=== PATIENT | female | born 1940 | race Caucasian/White ===

== ENCOUNTER → 2016-11-09 | Outpatient (CLI) | payer MEDICARE ==
[2014-10-12 14:00] VITALS: BP 175/71
[~2016-11-09] MED LIST: ALPR0.25 PO; DILT180C2 PO; FLUT9.9S NS; GABA-585 PO; GABA-586 PO; LACT1CAP6 PO; LISI10TA2 PO; METO25TA9 PO; METO50TA10 PO; OMEG1CAP6 PO; OMEP20CA5 PO; OXYB10TA7 PO; PROAIR HFA8.5 GM INH; PROM25SU32 RC; PROM25TA10 PO
--- NOTE | 2016-11-09 13:40 | KCIC ---
PROCEDURE Pelvic ultrasound HISTORY Right pelvic pain and right inguinal pain. COMPARISON None TECHNIQUE Transabdominal and transvaginal scanning is performed. FINDINGS Ovaries are not visualized transabdominally. The uterus is poorly visualized. Therefore, transvaginal scanning is performed Uterus measures 3.9 centimeters longitudinal by 2.1 centimeters AP by 2.9 centimeters wide. Uterus is difficult to visualize transvaginally as well. The endometrium is poorly defined but measures about 15 millimeters thickness. Right and left ovaries are not visualized endovaginally either. There may be a small right inguinal lymph node measuring 8 millimeters. No free fluid is seen. IMPRESSION 1. Uterus is small and poorly visualized. 2. Ovaries are not visualized. 3. No free fluid. Electronically signed by: Mike Douglass MD (Nov 09, 2016 13:40:04)
== END | disposition home or self-care (01) ==
LOC: KCIC US 12:18
PROVIDERS: ATTEND Nurse Practitioner Family
DX: R10.31 Right lower quadrant pain (principal); R10.2 Pelvic and perineal pain; R10.30 Lower abdominal pain, unspecified
CPT/HCPCS: 76830; 76856

== ENCOUNTER → 2016-11-22 | Outpatient (CLI) | payer MEDICARE ==
[2014-10-12 14:00] VITALS: BP 175/71
--- NOTE | 2016-11-22 11:24 | KCIC ---
PROCEDURE Two-view chest. HISTORY Cough, shortness of air, bronchitis x3 days. COMPARISON Two-view chest, September 26, 2016. FINDINGS The cardiomediastinal silhouette is normal. Tortuous thoracic aorta. Lungs are clear. There is emphysema. No pleural effusion or pneumothorax. No acute bone abnormality. IMPRESSION No acute cardiopulmonary process. Electronically signed by: Cresencio Perkins MD (Nov 22, 2016 11:23:20)
== END | disposition home or self-care (01) ==
LOC: KCIC 11:00
PROVIDERS: ATTEND Nurse Practitioner Family
DX: J40 Bronchitis, not specified as acute or chronic (principal); R06.02 Shortness of breath; R05 Cough
CPT/HCPCS: 71020

== ENCOUNTER → 2017-10-14 | Outpatient (CLI) | payer MEDICARE, BC ==
[2014-10-12 14:00] VITALS: BP 175/71
[~2017-10-14] MED LIST changes: +METO-239 PO; -METO25TA9 PO; -METO50TA10 PO; +METO50TA29 PO
--- NOTE | 2017-10-14 11:32 | KCIC ---
CHEST PA LATERAL History: Severe shortness of air, bronchitis Comparison: None. Findings: There is no infiltrate, pneumothorax, or effusion. The cardiac silhouette is within normal limits in size. There is tortuous thoracic aorta. Impression: 1. There is no evidence of acute cardiopulmonary disease. Electronically signed by: Omer Fan MD (10/14/2017 11:28 AM) [facility]
== END | disposition home or self-care (01) ==
LOC: KCIC 10:06
PROVIDERS: ATTEND Nurse Practitioner Family
DX: J42 Unspecified chronic bronchitis (principal)
CPT/HCPCS: 71020

== ENCOUNTER → 2017-11-01 | Outpatient (CLI) | payer MEDICARE, BC | END | disposition home or self-care (01) | LOC: CT 09:05 | DX: J98.4 Other disorders of lung (principal); I77.810 Thoracic aortic ectasia; I25.10 Atherosclerotic heart disease of native coronary artery without angina pectoris; Z87.891 Personal history of nicotine dependence | CPT/HCPCS: 71250 ==

== ENCOUNTER → 2018-01-14 | Outpatient (CLI) | payer MEDICARE, BC | END | disposition home or self-care (01) | LOC: PMGWOUND 12:02 | DX: T23.001A Burn of unspecified degree of right hand, unspecified site, initial encounter (principal); T23.002A Burn of unspecified degree of left hand, unspecified site, initial encounter; I25.10 Atherosclerotic heart disease of native coronary artery without angina pectoris; J44.9 Chronic obstructive pulmonary disease, unspecified; K21.9 Gastro-esophageal reflux disease without esophagitis; Z87.891 Personal history of nicotine dependence; X19.XXXA Contact with other heat and hot substances, initial encounter; Y93.G3 Activity, cooking and baking; Y99.8 Other external cause status; Y92.9 Unspecified place or not applicable | CPT/HCPCS: 99214 ==

== ENCOUNTER → 2018-01-21 | Outpatient (CLI) | payer MEDICARE, BC | END | disposition home or self-care (01) | LOC: PMGWOUND 11:38 | DX: T23.001D Burn of unspecified degree of right hand, unspecified site, subsequent encounter (principal); T23.002D Burn of unspecified degree of left hand, unspecified site, subsequent encounter; I25.10 Atherosclerotic heart disease of native coronary artery without angina pectoris; J44.9 Chronic obstructive pulmonary disease, unspecified; K21.9 Gastro-esophageal reflux disease without esophagitis; I73.9 Peripheral vascular disease, unspecified; D48.5 Neoplasm of uncertain behavior of skin; Z87.891 Personal history of nicotine dependence; X19.XXXD Contact with other heat and hot substances, subsequent encounter | CPT/HCPCS: 11100; 88305 ==

== ENCOUNTER → 2018-01-28 | Outpatient (CLI) | payer MEDICARE, BC | END | disposition home or self-care (01) | LOC: PMGWOUND 11:18 | DX: T23.001D Burn of unspecified degree of right hand, unspecified site, subsequent encounter (principal); T23.002D Burn of unspecified degree of left hand, unspecified site, subsequent encounter; I25.10 Atherosclerotic heart disease of native coronary artery without angina pectoris; J44.9 Chronic obstructive pulmonary disease, unspecified; K21.9 Gastro-esophageal reflux disease without esophagitis; I73.9 Peripheral vascular disease, unspecified; D48.5 Neoplasm of uncertain behavior of skin; Z87.891 Personal history of nicotine dependence; X19.XXXD Contact with other heat and hot substances, subsequent encounter | CPT/HCPCS: 99214 ==

== ENCOUNTER → 2019-07-16 | Outpatient (CLI) | payer MEDICARE ==
[2018-04-24 19:00] VITALS: BP 135/79
[~2019-07-16] MED LIST changes: +ALBU2.5V8 INH; +AMOX1TAB11 PO; +DULO20CA PO; +EZET10TA20 PO; +FENO54TA PO; -GABA-586 PO; +GABA300C18 PO; +GUAI5SYR PO; +IOHEXOL 350 MG/ML 100 ML VIAL. IV ONE; +MONT10TA49 PO; +OMEP40CA5 PO; +POLY17PO29 PO; +PRED20TA PO; -PROAIR HFA8.5 GM INH; +VENTOLIN HFA18 GM INH; +XOPENEX1.25 MG/3 NEB
[2019-07-16 12:43] LABS: CREATININE 0.8 mg/dL (0.6-1.0)
--- NOTE | 2019-07-16 17:39 | RAD ---
Examination: CT ANGIO CHEST ABD PELVIS History: Descending thoracic aortic aneurysm Comparison/Correlation: 04/23/2018 CTA of the chest, 04/24/2019 CTA of the abdomen and pelvis Findings: Axial images of chest, abdomen, and pelvis were obtained prior to and following IV contrast according to aortic arteriography protocol. 3-D time rendered images were provided. Sagittal and coronal reformatted images were provided. The thoracic aorta opacifies normally with contrast. No evidence of aortic dissection. No intramural hematoma. No significant stenoses of the major thoracic aortic branch vessels. 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 Superior and inferior mesenteric artery stenoses are lesser in extent without significant change. No right or left main renal arterial stenosis. There is a distal thoracic, upper abdominal aortic aneurysm again identified morphology is similar as compared to previous exam. Aneurysm is unchanged in size with diameter of up to 4.74 cm. This aneurysm includes the origins of the celiac and superior mesenteric artery. Infrarenal abdominal aortic aneurysm is also again seen. Morphology is unchanged with the diameter of up to 3.7 cm transverse and anteroposterior diameter of 3.4 cm which is similar to the prior exam. The more distal abdominal aorta is also similar upon correlation with the prior exam. Bilateral main renal arteries are unremarkable. No significant stenoses of the common iliac arterial origins. Diffuse atheromatous, calcific involvement of the abdominal aorta and iliac arteries. Stenoses involving the iliac arteries is similar to the prior exam. Right apical pleural thickening is present. No change in a right apical pulmonary nodule measuring up to 0.5 cm diameter. No infiltrates. Emphysematous involvement of the lung esteban again noted. Linear scarring or atelectasis involving lung bases again seen. Previously evident infiltrates have resolved. No enlarged thoracic lymph nodes. No pleural or pericardial effusion. Nodular contour of the liver which raises question of cirrhosis or other fibrotic changes noted. Spleen is normal in size. Pancreas is unremarkable. Adrenal glands are normal. Gallbladder fossa is unremarkable. Symmetric perfusion of the kidneys identified. No enlarged abdominal or pelvic lymph nodes. Urinary bladder is unremarkable. Uterus is atrophic. Impression: No significant change in known aortic aneurysms. No new infiltrate. Resolution of previously evident infiltrates. Nodular contour of the liver which may represent cirrhosis or other fibrotic process. No splenomegaly. Atherosclerotic calcific involvement including stenosis especially of the celiac artery again seen. Diffuse atheromatous involvement of the iliac arteries again identified. PQRS Compliance Statement: One or more of the following individualized dose reduction techniques were utilized for this examination: 1. Automated exposure control 2. Adjustment of the mA and/or kV according to patient size 3. Use of iterative reconstruction technique Electronically signed by: Milton Cooley MD (07/16/2019 5:36 PM) [facility]
== END | disposition home or self-care (01) ==
LOC: CT 12:43
PROVIDERS: ATTEND Registered Nurse Medical-Surgical
DX: I77.4 Celiac artery compression syndrome (principal); J43.9 Emphysema, unspecified; K55.1 Chronic vascular disorders of intestine; I71.2 Thoracic aortic aneurysm, without rupture; I71.4 Abdominal aortic aneurysm, without rupture
CPT/HCPCS: 36415; 71275; 74174; 82565; Q9967

== ENCOUNTER → 2020-04-26 | Outpatient (CLI) | payer MEDICARE ==
[2018-04-24 19:00] VITALS: BP 135/79
[~2020-04-26] MED LIST changes: +IOHEXOL 300 MG/ML 100ML VIAL. IV ONE; -IOHEXOL 350 MG/ML 100 ML VIAL. IV ONE; +OMEP40CA45 PO; -OMEP40CA5 PO
--- NOTE | 2020-04-26 13:31 | KCIC ---
Chest CTA History: Thoracic aortic aneurysm, abdominal aortic aneurysm Technique: After bolus of intravenous contrast, CT imaging was performed of the chest. Multiplanar reconstruction images to include MIP and 3-D reconstruction images are submitted. Exposure: One or more of the following individualized dose reduction techniques were utilized for this examination: 1. Automated exposure control 2. Adjustment of the mA and/or kV according to patient size 3. Use of iterative reconstruction technique. Comparison: July 16, 2019 Findings: Tubular ascending thoracic aorta is somewhat ectatic about 3.7 cm, fairly similar. Aortic root measures about 2.9 cm, not significantly dilated. Descending thoracic aorta is tortuous as seen previously. More distal descending thoracic aorta is again dilated, maximal dimension about 3.6 cm above the hiatus and measuring up to 4.8 cm about the hiatus extending to the superior abdomen (previously up to about 4.6 cm at similar location). No dissection flap is identified, scattered plaque present. There is somewhat increased degree of peripheral mural thrombus near the hiatus. There is again degree of stenosis of the proximal celiac and superior mesenteric arteries. Not fully evaluated, there is again infrarenal abdominal aneurysm, visualized portion about 3.8 cm probably unchanged although again not fully included. There is again biapical density likely due to fibrotic change. There is no pericardial pleural fluid, pneumothorax, lobar infiltrate. There is some coronary calcification. There is mild more linear-appearing density in the trachea greater dependently more likely due to mucus. There is emphysema with upper zone predominance. There is again nodular margin of the visualized liver and hepatic steatosis. Impression: 1. There is again dilatation of the distal descending thoracic aorta and proximal abdominal aorta, slightly larger near hiatus up to 4.8 cm maximal axial dimension. There is slightly ectatic tubular ascending thoracic aorta about 3.7 cm as seen previously. There is infrarenal abdominal aortic aneurysm barely included on this exam. There is again degree of narrowing of the proximal celiac and superior mesenteric arteries. 2. There is again evidence of cirrhosis and hepatic steatosis. 3. There is some coronary calcification. 4. There is emphysema with upper zone predominance. Electronically signed by: Omer Fan MD (04/26/2020 1:28 PM) [id number]
== END ==
LOC: KCIC CT 09:44
PROVIDERS: ATTEND Registered Nurse Medical-Surgical
DX: I71.4 Abdominal aortic aneurysm, without rupture (principal); J43.9 Emphysema, unspecified; I25.10 Atherosclerotic heart disease of native coronary artery without angina pectoris; I71.2 Thoracic aortic aneurysm, without rupture
CPT/HCPCS: 71275; 82565; Q9967

== ENCOUNTER → 2020-11-15 | Outpatient (CLI) | payer MEDICARE ==
[2018-04-24 19:00] VITALS: BP 135/79
[~2020-11-15] MED LIST changes: -IOHEXOL 300 MG/ML 100ML VIAL. IV ONE
--- NOTE | 2020-11-15 16:25 | KCIC ---
3 views of the lumbar spine without comparison for acute low back pain status post recent fall, bilat eral hip pain, right greater than left. FINDINGS: There is no fracture, dislocation, or acute osseous abnormality identified. There is narrow ing at L5-S1 intervertebral disc space. Facet arthrosis is seen at multiple levels. There is vasculop athy with aortoiliac calcifications, and an infrarenal abdominal aortic aneurysm. IMPRESSION: 1. No acute osseous or alignment abnormality of the lumbar spine. Electronically signed by: Nilo Payton MD (11/15/2020 4:22 PM) [id number]
--- NOTE | 2020-11-16 03:02 | KCIC ---
EXAM: 2 views pelvis DATE: 11/15/2020 3:20 PM INDICATION: Reason: Acute LBP post recent fall, bilateral hip pain Rt>Lt. / Spl. Instructions: / His tory: COMPARISON: No Prior FINDINGS: Decreased bone mineral density. No acute fracture or dislocation. Gastric calcifications are seen. IMPRESSION: Within the constraints of osteopenia, no evidence for acute fracture or dislocation. If there is pers istent clinical concern for fracture, further evaluation with MRI is recommended given degree of oste openia. Electronically signed by: Frankie Carr MD (11/16/2020 2:59 AM) [facility]
== END ==
LOC: KCIC 15:14
PROVIDERS: ATTEND Nurse Practitioner Gerontology
DX: M48.07 Spinal stenosis, lumbosacral region (principal); M12.88 Other specific arthropathies, not elsewhere classified, other specified site; I71.4 Abdominal aortic aneurysm, without rupture; I70.0 Atherosclerosis of aorta; M85.88 Other specified disorders of bone density and structure, other site
CPT/HCPCS: 72100; 72170

== ENCOUNTER → 2021-05-24 | Outpatient (CLI) | payer MEDICARE ==
[2021-01-31 14:42] VITALS: BP 112/58
[~2021-05-24] MED LIST changes: +ACET325T9 PO; +ALBU2.5V8 IH; +ASPI325T8 PO; +DILT180C29 PO; +FURO-68 PO; +IBUP400T99 PO; +IOHEXOL 350 MG/ML 100 ML VIAL. IV ONE; +LISI10TA16 PO; -LISI10TA2 PO; +LISI40TA6 PO; +METF500T16 PO; +NITR0.4T22 SL; +NITR1PAT73 TD; +OMEP20CA16 PO; -OMEP40CA45 PO; +OMEP40CA7 PO; +POTA20TA4 PO; +SENN1TAB99 PO
[2021-05-24 11:11] LABS: ALBUMIN 3.4 g/dL (3.4-5.0); ALBUMIN/GLOBULIN RATIO 0.8 (1.0-1.7); CALCIUM 9.4 mg/dL (8.5-10.1); CREATININE 0.7 mg/dL (0.6-1.0); GFR 80.1; POTASSIUM 4.3 mmol/L (3.5-5.1); TOTAL BILIRUBIN 0.7 mg/dL (0.2-1.0); TOTAL PROTEIN 7.7 g/dL (6.4-8.2)
--- NOTE | 2021-05-24 17:54 | RAD ---
EXAM: CT ANGIOGRAM CHEST, ABDOMEN, AND PELVIS WITH AND WITHOUT CONTRAST INDICATION: Aortic aneurysm COMPARISON: CTA chest abdomen and pelvis 07/16/2019 and CTA chest 04/26/2020 TECHNIQUE: Helical CT angiogram of the chest, abdomen and pelvis before and after administration of 9 0 mL Omnipaque 350 intravenous contrast. Sagittal and coronal reformats were obtained. One or more of the following individualized dose reduction techniques were utilized for this examinat ion: 1. Automated exposure control 2. Adjustment of the mA and/or kV according to patient size 3. Use of iterative reconstruction technique. FINDINGS: VASCULATURE: No aortic dissection or intramural hematoma. Mild to moderate calcified atherosclerosis in the aorta. The distal thoracic aortic aneurysm has increased in size, now measuring 5.0 x 4.5 cm at the level of the diaphragmatic hiatus. This previously measured about 4.8 x 4.1 cm at this location on 04/26/2020. The aneurysm extends inferiorly to involve the celiac artery and superior mesenteric artery origins. There is mildly increased mural thrombus in the aneurysm sac. 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 Multifocal infrarenal abdominal aortic aneurysm measures up to 4.2 x 3.5 cm just below the renal chiquita ry origins, previously 4.0 x 3.3 cm. The more distal component measures up to 2.9 x 2.47 cm, previous ly 2.6 x 2.3 cm. Mild narrowing of the right renal artery origin. 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 Inferior mesenteric artery is patent. The iliac arteries are normal in caliber with moderate calcified atherosclerosis resulting in multifo sidney narrowing, unchanged. CHEST: Thyroid gland and thoracic inlet: The visualized portion of thyroid gland is normal. Heart and great vessels: Heart is normal in size. No pericardial effusion there are coronary artery c alcifications. Mediastinum and good: A 1 cm short axis AP window lymph node and multiple other tiny mediastinal lymp h nodes are unchanged. Lungs and pleura: Mild pleural parenchymal scarring in the apices. 5 mm nodule in the right apex, 4 m m nodule in the anterior left upper lobe, and 3 mm pulmonary nodule in the posterior right upper lobe are unchanged from 2019. Mild atelectasis in the lingula and right middle lobe. There is mild centri lobular emphysema and moderate airway wall thickening. No pleural effusion. Chest wall and axillae: No axillary lymphadenopathy. Breast tissue symmetric. Bones: No acute osseous abnormality of the chest. The bones are diffusely demineralized. ABDOMEN AND PELVIS: Liver: Liver is nodular consistent with cirrhosis. Gallbladder/Biliary Tree: Cholelithiasis. Pancreas: Normal. Spleen: No splenomegaly. Adrenal Glands: Normal. Kidneys/Ureters/Bladder: Kidneys are normal in size. No hydronephrosis. Ureters and bladder are pat l. Reproductive Organs: Uterus is unremarkable. No adnexal mass. Stomach, small bowel, and colon: Stomach, small bowel, and colon are unremarkable. Vasculature: See above Lymph Nodes: No lymphadenopathy. Peritoneum and retroperitoneum: No free fluid or free air. Bones: The bones are diffusely demineralized. Grade 1 spinal listhesis at L4-L5. IMPRESSION: 1. Increased size of distal descending thoracic aortic aneurysm now measuring up to 5.0 x 4.5 cm, pr eviously 4.8 x 4.1 cm. This is at the level the diaphragm and involves the celiac and superior mesent olga artery origins. 2. Mildly increased size of multifocal infrarenal abdominal aortic aneurysm. The largest component no w measures 4.2 x 3.5 cm, previously 4.0 x 3.3 cm. 3. 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 4. Unchanged emphysema and small pulmonary nodules measuring up to 5 mm. 5. Unchanged cirrhosis. 6. Cholelithiasis. . Electronically signed by: Pearl Burkett MD (05/24/2021 5:52 PM) [id number]
== END ==
LOC: CT 10:29
PROVIDERS: ATTEND Family Medicine
DX: I71.4 Abdominal aortic aneurysm, without rupture (principal); I71.2 Thoracic aortic aneurysm, without rupture; R91.8 Other nonspecific abnormal finding of lung field; J43.2 Centrilobular emphysema; J98.11 Atelectasis; K80.20 Calculus of gallbladder without cholecystitis without obstruction; K74.60 Unspecified cirrhosis of liver; J98.4 Other disorders of lung; I70.0 Atherosclerosis of aorta; I77.4 Celiac artery compression syndrome; I70.8 Atherosclerosis of other arteries; R59.0 Localized enlarged lymph nodes
CPT/HCPCS: 36415; 71275; 74174; 80053; Q9967